=== PATIENT | male | born 1980 | race African-American/Black ===

== ENCOUNTER 2023-07-21 10:33 | Emergency (ER) | payer OTHER, SELFPAY ==
--- NOTE | 2023-07-21 10:46 | ED.BACK ---
HPI - Back Pain/Injury General Chief Complaint: Chest Pain Stated Complaint: Left Side Body/Chest/ Neck Pain Time Seen by Provider: 07/21/23 11:10 Source: patient Mode of arrival: ambulatory Limitations: no limitations History of Present Illness HPI Narrative: Pj is a 42-year-old male patient presenting to the clinic today with complaints of chest pain, back pain, neck pain, shortness of breath, weakness, and dizziness. He reports the symptoms have been going on for over 1 month but he got short of breath with exertion today. Blood pressure is 180/106 in the clinic today. Patient has prescription for antihypertensives but has not been taking them nor knows the name of them. Rates chest pain 5 or 6. Pain is worse with inspiration and sharp in nature. He is a current smoker. Related Data Home Medications Medication Instructions Recorded Confirmed amlodipine 5 mg tablet 5 mg PO DAILY 07/21/23 07/21/23 hydrochlorothiazide 20 mg PO DAILY 07/21/23 07/21/23 Allergies Allergy/AdvReac Type Severity Reaction Status Date / Time No Known Allergies Allergy Verified 07/21/23 11:31 Review of Systems Review of Systems: Pertinent positives per HPI. Patient denies any fever, chills, rash, headache, visual changes, cough, runny nose, sore throat, palpitations, nausea, vomiting, diarrhea, constipation, abdominal pain, or any urinary issues. PMFSH Past Medical History Medical History (Updated 07/21/23 @ 14:13 by Rossy Higgins MD) Hyperlipidemia Hypertension Social History Social History Social History: Engaged. Smoking packs per day: 1.5 Smoking cigarettes per day: 30.0 Smoking status: Current every day smoker Additional smoking assessment comments: Previously 1.5-2 PPD, currently 1-1.5 PPD. Alcohol intake: current Drinks per week: 14 Alcohol use details: 1-2 shots liquour daily Substance use: never Other substance usage details: denies Comments At the time of my signature, I reviewed and agree with the nursing past medical, surgical, social, and family history. There is no relevant family history pertinent to the patient complaint. Exam Narrative: General: Well-developed, well nourished, in no apparent distress Head: Normocephalic, atraumatic. Cardio: Regular rate and rhythm, s1 and s2 normal, no murmur appreciated. Resp: Clear to auscultation bilaterally, no rhonchi, rales, wheezing or rubs. Extremities: No deformity, no edema, no cyanosis, capillary refill less than 2 seconds, peripheral pulses palpable and strong. Integumentary: [place], warm, and dry, intact without lesion, no rashes. Course Course Emergency Course: Portions of this record may have been created with voice recognition software. Level of Care: Express Care Visit Vital Signs Vital signs: Vital Signs Temperature 36.8 C 07/21/23 11:10 Pulse Rate 88 07/21/23 11:10 Respiratory Rate 20 07/21/23 11:10 Blood Pressure 180/106 H 07/21/23 11:10 Pulse Oximetry 98 07/21/23 11:10 Oxygen Delivery Room Air 07/21/23 11:10 Temperature 36.8 C 07/21/23 11:10 Pulse Rate 88 07/21/23 11:10 Respiratory Rate 20 07/21/23 11:10 Blood Pressure 180/106 H 07/21/23 11:10 Pulse Oximetry 98 07/21/23 11:10 Oxygen Delivery Room Air 07/21/23 11:10 Vital signs reviewed MDM - Back Pain/Injury MDM Narrative Medical decision making narrative: At the time of visit patient is resting comfortably on the exam table. Patient appears to be nontoxic. Contacted collaborating physician- Dr. Abad and discussed patient's case with her and since there is no comparison EKG-she recommends transfer to ED. EKG: Sinus rhythm with ST T-wave abnormalities/changes. No comparison EKG. Medications: ASA-324mg po, INT Plan: Recommend transfer to the ER via EMS for further evaluation to rule out acute coronary syndrome. Patient agreeable to tra
[2023-07-21 11:10] VITALS: BP 180/106; PULSE 88; RESP 20; TEMP 36.8; O2SAT 98
--- NOTE | 2023-07-21 11:15 | ECG_ITS ---
Measurements Intervals [place] Rate: 82 P: 48 VA: 125 QRS: 17 QRSD: 102 T: 185 QT: 407 QTc: 478 Interpretive Statements SINUS RHYTHM LEFT VENTRICULAR HYPERTROPHY AND ST-T CHANGE ST-T WAVE ABNORMALITY IN ANT/INF LEADS- CONSIDER ISCHEMIA ABNORMAL ECG NO PREVIOUS ECG AVAILABLE FOR COMPARISON Electronically Signed On 07-21-2023 14:44:34 COLLISION REPAIRER by Willard Cheung D.O.
[2023-07-21] MEDS: ASPIRIN 81 MG CHEWABLE TABLET 324 MG PO (11:36)
== END 2023-07-21 11:40 | disposition short-term general hospital (02) ==
PROVIDERS: Emergency Provider Nurse Practitioner Family; PCP Emergency Medicine
DX: R06.02 Shortness of breath (principal); R94.31 Abnormal electrocardiogram [ECG] [EKG]; R07.1 Chest pain on breathing; I10 Essential (primary) hypertension; F17.210 Nicotine dependence, cigarettes, uncomplicated; E78.5 Hyperlipidemia, unspecified
CPT/HCPCS: 93005; 99215; A9270; G0463

== ENCOUNTER 2023-07-21 11:58 | Observation (INO) | payer OTHER, SELFPAY ==
[2023-07-21] VITALS (55 sets, daily range): BP systolic 174–214; BP diastolic 83–121; PULSE 70–89; RESP 11–22; TEMP 36.4–36.6; O2SAT 97–100; BMI 35.9
--- NOTE | 2023-07-21 | ECHO_ITS ---
Patient Info Name: Pj Duffy Age: 42 years : 1980 Gender: Male Ht: 67 in Wt: 242 lbs BSA: 2.33 m2 HR: 73 bpm BP: 203 / 121 mmHg Heart Rhythm: Sinus Rhythm Technical Quality: Good Exam Date: 07/21/2023 2:45 PM Exam Location: Echo Lab Patient Status: Emergency Admit Date: 07/21/2023 Staff Ordering Physician: Willard Cheung DO Pantomimist: Vaishali Solano RDCS Attending Provider: Rossy Higgins MD Referring Physician: Jonatan ARITA; Exam Type: CA echo doppler color flow Study Info Indications - nstemi Complete two-dimensional, color flow and Doppler transthoracic echocardiogram is performed. Summary 1. Complete two-dimensional, color flow and Doppler transthoracic echocardiogram is performed. 2. Left ventricular chamber dimension is normal. 3. There is moderate concentric increased left ventricular wall thickness. 4. Basal to apical lateral wall is mildly hypokinetic. 5. Left ventricular systolic function is normal, estimated at 65-70%. 6. The left ventricular diastolic function is grade III diastolic dysfunction. 7. E/e' 19 is elevated. 8. Left atrial chamber dimension is mildly enlarged. 9. There is mild mitral valve regurgitation. 10. No pulmonary hypertension, estimated pulmonary arterial systolic pressure is 22 mmHg. Left Ventricle E/e' 19 is elevated. Basal to apical lateral wall is mildly hypokinetic. Left ventricular chamber dimension is normal. Left ventricular systolic function is normal, estimated at 65-70%. There is moderate concentric increased left ventricular wall thickness. The left ventricular diastolic function is grade III diastolic dysfunction. Right Ventricle Right ventricular systolic function is normal and with normal TAPSE 2.3 cm. Right ventricular chamber dimension is normal. Left Atria Left atrial chamber dimension is mildly enlarged. Right Atria Right atrial chamber dimension is normal. Aortic Valve The aortic valve is trileaflet. There is no aortic valve stenosis. There is no aortic valve regurgitation. Pulmonic Valve There is no pulmonic regurgitation. Mitral Valve There is no mitral valve stenosis. There is mild mitral valve regurgitation. Tricuspid Valve There is no tricuspid valve regurgitation. No pulmonary hypertension, estimated pulmonary arterial systolic pressure is 22 mmHg. Pericardium/Pleural There is no pericardial effusion. Inferior Vena Cava Normal inferior vena cava with >50% collapse upon inspiration consistent with normal right atrial pressure, 5 mmHg. Aorta The aortic root size at the sinus of Valsalva is normal. Left Ventricular Outflow Tract Name Value Normal LVOT 2D LVOT Diameter 2.0 cm LVOT Doppler LVOT Peak Gradient 4 mmHg LVOT Mean Gradient 2 mmHg LVOT VTI 17 cm LVOT VTI/AV VTI Ratio 0.8 LVOT Stroke Volume 56 ml LVOT CO 4.1 l/min LVOT CI 1.8 l/min/m2 Pulmonic Valve Name Value
--- NOTE | ~2023-07-21 | XR_ITS ---
EXAMINATION: XR chest 1V portable 07/21/2023 12:23 INDICATION: Chest pain. Hypertension. PROCEDURE: AP portable chest COMPARISON: No prior studies for comparison. FINDINGS: The lungs are clear. The cardiomediastinal silhouette is within normal limits. There are no pleural effusions. There is no pneumothorax suspected. IMPRESSION: 1: NO ACUTE CARDIOPULMONARY DISEASE. Reviewed, dictated and finalized at location B. UMER INSIGHTS SPECIALIST
--- NOTE | ~2023-07-21 | CT_ITS ---
EXAMINATION: CTA chest abdomen pelvis DATE: 07/21/2023 12:55 AMBULANCE DISPATCHER INDICATION: Chest pain. Hypertension. TECHNIQUE: Computed tomographic angiography (CTA) of the chest, abdomen, and pelvis was performed wit hout and with 100 mL Omnipaque-350 intravenous contrast. The dose-length product was 1929.31 mGy-cm. Maximum intensity projection 3D-reconstructions of the aorta and other arteries were constructed by miguelangel lee technologist on a separate workstation. Automated exposure control and iterative reconstruction te duncan were employed. COMPARISON: None. FINDINGS: CHEST CTA: There are nonenlarged mediastinal lymph nodes, likely reactive. No significant pleural or pericardial effusion. No large central pulmonary embolism. No evidence for aortic aneurysm or dissection. No callum dence for significant lymphadenopathy. There is dependent atelectasis. There is a 6 mm right middle l obe nodule, image 86. No endobronchial lesions. No pneumothorax. Mild emphysema. Cardiomegaly. ABDOMEN AND PELVIS CTA: There were small low-density lesions in the left hepatic lobe, too small to characterize, likely amelia gn cysts. There are gallstones. The spleen, pancreas, adrenal glands and kidneys are unremarkable. No rmal appendix. No lymphadenopathy. No evidence for aortic aneurysm or dissection. No abnormal pelvic masses or fluid collections. Bladder is now well distended. Nonobstructive bowel pattern. The celiac axis, SMA, renal arteries and LIZ are widely patent. IMPRESSION: 1. No evidence for aortic aneurysm, significant stenosis or dissection. 2: Right middle lobe nodule measuring 6 mm. Recommend follow-up low dose CT chest in 6 months to ass ess stability. 3: Cholelithiasis. Reviewed, dictated and finalized at location B. BULANCE DISPATCHER IMPRESSION: 1. No evidence for aortic aneurysm, significant stenosis or dissection. 2: Right middle lobe nodule measuring 6 mm. Recommend follow-up low dose CT ch est in 6 months to assess stability. 3: Cholelithiasis.
--- NOTE | ~2023-07-21 | CT_ITS ---
EXAMINATION: CT BRAIN W/O DATE: 07/21/2023 12:47 INDICATION: Headache. Hypertension. TECHNIQUE: Computed tomography (CT) of the head was performed without intravenous contrast. The dose- length product was 605.33 mGy-cm. Automated exposure control and iterative reconstruction technique w ere employed. COMPARISON: No prior studies for comparison. FINDINGS: Normal brain parenchymal volume for age. Normal mederos-white differentiation. No acute intrac ranial hemorrhage, infarction, mass or mass effect. No ventriculomegaly or midline shift. Midline sagittal images demonstrate a normal corpus callosum, c raniovertebral junction and sella turcica. Basilar cisterns are patent. Paranasal sinuses and mastoids are pneumatized. No depressed skull fractures. IMPRESSION: 1. No acute intracranial abnormality. Reviewed, dictated and finalized at location B. HT ATTENDANT RAMP
--- NOTE | 2023-07-21 12:05 | ED.HA ---
HPI - Headache General Chief Complaint: Headache Stated Complaint: headache, htn Time Seen by Provider: 07/21/23 12:03 Source: patient and family (finicolas) Mode of arrival: ambulatory Limitations: no limitations History of Present Illness HPI Narrative: patient presents from urgent care. Patient notes that he has dealt with chest pain and shortness of breath with exertion for several months. he states he did have some chest pain with exertion while walking around earlier today and this prompted him to go to urgent care but this has since resolved and has not recurred. He also experiences a headache which he describes as a pressure throughout his head. He notes that this comes on when his blood pressure is elevated. he was previously on amlodipine, hydrochlorothiazide, and another antihypertensive that starts with a C. He was experiencing symptoms with this regimen and so two of these medications were discontinued and patient was to remain on amlodipine with the addition of 2 new antihypertensive agents. 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 he attributes the symptoms to being fat and out of shape. denies recreational drug use. Drinks 1 or 2 shots of alcohol daily. He notes that he has a chronic cough in the setting of his smoking but no changes recently. He was previously 1.5-2 pack per day smoker although lately has been 1-1 and half packs per day. He does endorse some nausea occasionally. No fevers. He notes that he becomes diaphoretic at night. Uses a CPAP machine. Has never established with Cardiology although has appointment to see someone on 07/28/2023. When he does experience chest pain is located in the middle of his chest and is worse with breathing. Father had myocardial infarction before age 65. He has been told his cholesterol is elevated but is not on medication for this. no prior stress test or cardiac catheterization. no history of TIA/ CVA, PAD. Related Data Home Medications Medication Instructions Recorded Confirmed amlodipine 5 mg tablet 5 mg PO DAILY 07/21/23 07/21/23 hydrochlorothiazide 20 mg PO DAILY 07/21/23 07/21/23 Allergies Allergy/AdvReac Type Severity Reaction Status Date / Time No Known Allergies Allergy Verified 07/21/23 11:31 [facility] Past Medical History Medical History (Updated 07/21/23 @ 14:13 by Rossy Higgins MD) Hyperlipidemia Hypertension Social History Social History Social History: Engaged. Smoking packs per day: 1.5 Smoking cigarettes per day: 30.0 Smoking status: Current every day smoker Additional smoking assessment comments: Previously 1.5-2 PPD, currently 1-1.5 PPD. Alcohol intake: current Drinks per week: 14 Alcohol use details: 1-2 shots liquour daily Substance use: never Other substance usage details: denies Exam Narrative: GENERAL: Well-appearing, well-nourished, and in no acute distress. HEAD: Normocephalic, atraumatic. EYES: Non injected, non icteric. Grossly normal/equal. ENT: Nares clear, no rhinorrhea or epistaxis. NECK: Supple. CHEST: Speaking in full sentences. No respiratory distress. HEART: Regular rate and rhythm. . ABDOMEN: Obese, Soft, nondistended. EXTREMITIES: Normal range of motion. No edema. SKIN: Warm, dry, no rash. NEURO: No focal deficits. Alert and oriented x3. PSYCH: Normal mood and affect. Course Vital Signs Vital signs: Vital Signs Temperature 97.6 F 07/21/23 11:55 Pulse Rate 82 07/21/23 11:55 Respiratory Rate 16 07/21/23 11:55 Pulse Oximetry 100 07/21/23 11:55 Temperature 97.6 F 07/21/23 11:55 Pulse Rate 78 07/21/23 12:25 Respiratory Rate 13 07/21/23 12:25 Blood Pressure 194/116 H 07/21/23 12:06 Pulse Oximetry 99 07/21/23 12:25 MDM - Headache MDM Narrative Medical decision making narrative: Patient presents wit
--- NOTE | 2023-07-21 12:06 | ECG_ITS ---
Measurements Intervals [place] Rate: 86 P: 50 CO: 124 QRS: 20 QRSD: 102 T: 190 QT: 390 QTc: 468 Interpretive Statements SINUS RHYTHM POSSIBLE LEFT ATRIAL ENLARGEMENT LEFT VENTRICULAR HYPERTROPHY AND ST-T CHANGE ST-T WAVE ABNORMALITY IN ANT/INF LEADS- CONSIDER ISCHEMIA ABNORMAL ECG NO PREVIOUS ECG AVAILABLE FOR COMPARISON Electronically Signed On 07-21-2023 14:44:16 VENDING MACHINE MECHANIC by Willard Cheung D.O.
[2023-07-21 12:15] LABS: Basophils Percent Auto 0.6 % (0.2-1.2); Eosinophils Absolute Auto 0.1 K/mm3 (0-0.3); Hematocrit 42.6 % (42.0-52.0); Hemoglobin 14.1 g/dL (14.0-18.0); Immature Granulocyte Absolute 0.01 K/mm3 (0.00-0.031); Immature Granulocyte Percent A 0.1 % (0-0.5); Lymphocytes Absolute Auto 2.75 K/mm3 (0.9-3.2); Lymphocytes Percent Auto 39.6 % (18.3-44.2); Mean Corpuscular HGB Conc 33.1 g/dl (32-36); Mean Corpuscular Hemoglobin 29.4 pg (26-34); Mean Corpuscular Volume 88.8 fl (80-100); Mean Platelet Volume 10.4 fl (7.4-10.4); Monocytes Absolute Auto 0.6 K/mm3 (0.1-0.6); Monocytes Percent Auto 7.9 % (2.6-8.5); Neutrophils Absolute Auto 3.5 K/mm3 (1.3-6.7); Neutrophils Percent Auto 50.8 % (45.5-73.1); Platelet Count Result 259 k/mm3 (150-375); Red Cell Distribution Width 13.6 % (11.5-14.5); White Blood Count 6.9 K/mm3 (4.5-10.0)
[2023-07-21 12:24] LABS: Alanine Aminotransferase 34 U/L (6-50); Albumin Level 4.3 g/dL (3.5-5.1); Alkaline Phosphatase 70 U/L (38-126); Anion Gap 7 mmol/L (8-16); Aspartate Amino Transferase 28 U/L (17-59); Bilirubin,Total 0.6 mg/dL (0.2-1.3); Blood Urea Nitrogen 14 mg/dL (9-20); Calcium 8.7 mg/dL (8.4-10.2); Carbon Dioxide 29 mmol/L (22-30); Chloride 104 mmol/L (98-107); Estimated CRCL calculation 111 ml/min; Estimated Glomerular Filt Rate > 60; Glucose 92 mg/dL (65-110); Lipase 43 U/L (23-300); Potassium 4.1 mmol/L (3.4-5.0); Sodium 140 mmol/L (137-145)
[2023-07-21 12:25] LABS: Prothrombin Time 13.5 Seconds (11.1-14.7)
[2023-07-21 12:27] LABS: Partial Thromboplastin Time 27.9 SECONDS (22.3-36.8)
[2023-07-21 12:38] LABS: Troponin I 0.066 ng/mL (0.000-0.034)
[2023-07-21 12:41] LABS: D Dimer 0.24 ug/mL (<0.48)
[2023-07-21 12:48] LABS: NT Pro B Type Natriuretic Pept 520 pg/mL (19.9-100)
[2023-07-21] MEDS: ACETAMINOPHEN 500 MG TABLET 1000 MG PO (13:03)
[2023-07-21] MEDS: ESMOLOL HCL 100 MG/10 ML VIAL 10 MG IV PUSH (13:37)
[2023-07-21] MEDS: HEPARIN SODIUM 5,000 UNITS/ML VIAL 4000 UNITS IV PUSH (13:49)
[2023-07-21] MEDS: HEPARIN SOD/D5W 100 UNITS/ML 25,000 UNITS/250 ML BAG 10 UNITS IV CONT (13:50)
--- NOTE | 2023-07-21 14:05 | PM.CNCAR ---
Assessment and Plan Assessment and plan (1) NSTEMI (non-ST elevated myocardial infarction): Code(s): I21.4 - Non-ST elevation (NSTEMI) myocardial infarction Status: Acute Assessment and Plan: Received aspirin 325 mg. Started on heparin drip in ER. Trend troponin to peak. Check Lipid panel. Start Metoprolol Tartate 25 mg BID and Atorvastatin 80 mg qhs. Obtain echo. Plan for [facility] tomorrow. (2) Hypertension: Qualifiers: Hypertension type: unspecified Qualified Code(s): I10 - Essential (primary) hypertension Code(s): I10 - Essential (primary) hypertension Status: Acute Assessment and Plan: High. Monitor. Start Losartan 50 mg BID. (3) Tobacco abuse: Code(s): Z72.0 - Tobacco use Status: Acute Assessment and Plan: Counseled regarding smoking cessation. History of Present Illness History of Present Illness Consult date/time: 07/21/23 14:05 Reason For Visit: headache, htn Narrative: 42 yr old man presents to ER with chest pain. He has a history of hypertension and smoking. Reports he has been having intermittent chest pain with exertion associated with sob for last several weeks. He had last episode yesterday and went to Urgent Care then sent to ER. Not having any chest pains now at rest. He smokes 2 ppd. Review of Systems Review of Systems: All systems reviewed & are unremarkable except as noted in HPI and below Constitutional: Constitutional: Reports as per HPI, Denies chills and Denies fever(s) Cardiovascular: Cardiovascular: Reports as per HPI, Reports chest pain and Reports dyspnea on exertion Respiratory: Respiratory: Reports as per HPI and Reports dyspnea Gastrointestinal: Gastrointestinal: Reports as per HPI and Denies abdominal pain Genitourinary: Genitourinary: Reports as per HPI and Denies dysuria Musculoskeletal: Musculoskeletal: Reports as per HPI Neurologic: Reports as per HPI, Denies dizziness and Denies syncope [facility] Past Medical History Medical History (Updated 07/21/23 @ 14:09 by Willard Cheung DO) Hyperlipidemia Hypertension Social History Social History Social History: Engaged. Smoking packs per day: 1.5 Smoking cigarettes per day: 30.0 Smoking status: Current every day smoker Additional smoking assessment comments: Previously 1.5-2 PPD, currently 1-1.5 PPD. Alcohol intake: current Drinks per week: 14 Alcohol use details: 1-2 shots liquour daily Substance use: never Other substance usage details: denies Meds Home Medications and Allergies Home Medications Medication Instructions Recorded Confirmed Type amlodipine 5 mg tablet 5 mg PO DAILY 07/21/23 07/21/23 History hydrochlorothiazide 20 mg PO DAILY 07/21/23 07/21/23 History Allergies Allergy/AdvReac Type Severity Reaction Status Date / Time No Known Allergies Allergy Verified 07/21/23 11:31 Vital Signs Vital Signs - 24 hr 07/21/23 11:55 07/21/23 12:06 07/21/23 12:07 Temperature 97.6 F Pulse Rate 82 86 83 Respiratory Rate 16 14 21 H Blood Pressure 194/116 H Pulse Oximetry 100 100 100 07/21/23 12:25 07/21/23 12:52 07/21/23 13:04 Temperature Pulse Rate 78 80 77 Respiratory Rate 13 15 16 Blood Pressure Pulse Oximetry 99 99 07/21/23 13:03 07/21/23 13:16 07/21/23 13:17 Temperature Pulse Rate 82 83 Respiratory Rate 14 14 Blood Pressure 174/113 H 192/95 H Pulse Oximetry 99 100 Exam Const: General: cooperative, healthy appearing and comfortable Resp: Auscultation: clear to auscultation bilaterally, no crackles, no rales, no rhonchi and no wheezes Cardio: Rate: regular rate Rhythm: regular rhythm Heart sounds: no murmurs Peripheral pulses: dorsalis pedis present GI: GI Palp: No abdominal tenderness and Yes Soft to palpation Extrem: Right lower extremity: no edema Left lower extremity: no edema Results Labs and Me
[2023-07-21 14:30] LABS: Cholesterol 235 mg/dL (0-200); HDL Direct 48 mg/dL; Triglycerides 94 mg/dL (<150)
[2023-07-21 14:42] LABS: LDL Cholesterol Direct 146 mg/dL
[2023-07-21 14:47] LABS: Amphetamine Screen Urine Negative (Negative); Barbiturate Screen Urine Negative (Negative); Benzodiazepines Screen Urine Negative (Negative); Cannabinoid Screen Urine Negative (Negative); Cocaine Screen Urine Negative (Negative); Methadone Screen Urine Negative (Negative); Opiate Screen Urine Negative (Negative); Phencyclidine Screen Urine Negative (Negative)
--- NOTE | 2023-07-21 14:57 | PC.NURSE ---
as of now pt states they would like to hold off on getting nicotine patch
--- NOTE | 2023-07-21 15:16 | ECG_ITS ---
Measurements Intervals [place] Rate: 81 P: 47 SD: 96 QRS: 29 QRSD: 102 T: 196 QT: 403 QTc: 468 Interpretive Statements SINUS RHYTHM WITH SHORT SD INTERVAL POSSIBLE LEFT ATRIAL ENLARGEMENT LEFT VENTRICULAR HYPERTROPHY AND ST-T CHANGE ST-T WAVE ABNORMALITY IN ANT/INF LEADS- CONSIDER ISCHEMIA BASELINE ARTIFACT- I, II, AVR ABNORMAL ECG COMPARED TO ECG 07/21/2023 12:01:19 NO SIGNIFICANT CHANGES Electronically Signed On 07-21-2023 15:38:18 WAN SUPPORT SPECIALIST by Willard Cheung D.O.
[2023-07-21 16:33] LABS: Troponin I 0.059 ng/mL (0.000-0.034)
[2023-07-21] MEDS: LOSARTAN POTASSIUM 50 MG TABLET PO (17:13)
[2023-07-21 18:55] LABS: Troponin I 0.059 ng/mL (0.000-0.034)
--- NOTE | 2023-07-21 19:48 | PM.IMHP ---
H&P: HPI History of Present Illness Date/Time: 07/21/23 15:00 Chief Complaint: Headache, chest pain, shortness of breath. Narrative: This is a pleasant 42-year-old male smoker with hypertension and obstructive sleep apnea on CPAP who presented to the emergency department via EMS from urgent care for evaluation of headache, chest pain, and shortness of breath. The patient provides the following history. He was on antihypertensives for years but took himself off of the medication after he lost nearly 100 lb. He admits that he did not check his blood pressures to see if they had improved. Eventually he started having symptoms of headaches and shortness of breath with exertion and he establish care with a primary care physician who started him back on antihypertensives. 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 Intermittently since that time he has shortness of breath with exertion and occasional chest pain. Today he was at work when he developed a headache in addition to a tightness in the mid chest associated with shortness of breath, nausea, and sweats. He denies syncope, near syncope, cold and flu symptoms, pleuritic pain, sensations of racing heart, vomiting, lower extremity edema, and calf pain. He went to urgent care and was referred to the ER. Blood pressures have been as high as 201/118. Initial troponin was mildly elevated at 0.066. EKG showed sinus rhythm with evidence of LVH and ST T-wave abnormalities in the anterior/inferior leads. Head CT and CT of the chest, abdomen, and pelvis were without acute findings. He is being admitted in this setting for further treatment and Cardiology consultation. Review of Systems Review of Systems: Twelve systems were reviewed and are negative except for as per HPI. [facility] Past Medical History Medical History (Updated 07/21/23 @ 19:56 by Amelia James PA-C) Hyperlipidemia Hypertension Obstructive sleep apnea on CPAP Tobacco abuse Family History Family History (Updated 07/21/23 @ 19:53 by Amelia James PA-C) Father , In early 40s Enlarged heart Heart disease Social History Social History (Updated 07/21/23 @ 19:54 by Amelia James PA-C) Social History: Surrogate medical decision maker: gogo Stanford. Code status: Full code. Smoking packs per day: 1.5 Smoking cigarettes per day: 30.0 Smoking status: Current every day smoker Additional smoking assessment comments: Previously 1.5-2 PPD, currently 1-1.5 PPD. Alcohol intake: current Drinks per week: 14 Alcohol use details: 1-2 shots liquour daily Substance use: never Other substance usage details: denies Additional living arrangements comments: Lives with finicolase and 3 children. 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 Meds Home Medications and Allergies Home Medications Medication Instructions Recorded Confirmed Type amlodipine 5 mg tablet 5 mg PO DAILY 07/21/23 07/21/23 History hydrochlorothiazide 20 mg PO DAILY 07/21/23 07/21/23 History Allergies Allergy/AdvReac Type Severity Reaction Status Date / Time No Known Allergies Allergy Verified 07/21/23 11:31 Vital Signs Vital Signs - 24 hr 07/21/23 11:55 07/21/23 12:06 07/21/23 12:07 Temperature 97.6 F Pulse Rate 82 86 83 Respiratory Rate 16 14 21 H Blood Pressure 194/116 H Pulse Oximetry 100 100 100 07/21/23 12:25 07/21/23 12:52 07/21/23 13:04 Temperature Pulse Rate 78 80 77 Respiratory Rate 13 15 16 Blood Pressure Pulse Oximetry 99 99 07/21/23 13:03 07/21/23 13:16 07/21/23 13:17 Temperature Pulse Rate 82 83 Respiratory Rate 14 14 Blood Pressure 174/113 H 192/95 H Pulse Oximetry 99 100 07/21/23 13:52 07/21/23 14:05 07/21/23 14:36 Temperature Pulse Rate 80 81 78 Respiratory Rate 16 18 14 Blood Pressure Pulse Oximetry 100 100 100 07/21/23 14:45 07/21/23 14:46
[2023-07-21 20:32] LABS: Partial Thromboplastin Time 96.5 SECONDS (22.3-36.8)
[2023-07-21] MEDS: amLODIPine BESYLATE 5 MG TABLET PO (20:39)
[2023-07-21] MEDS: METOPROLOL TARTRATE 25 MG TABLET PO (22:08)
[2023-07-21] MEDS: ATORVASTATIN 40 MG TABLET 80 MG PO (22:09)
[2023-07-22] VITALS (29 sets, daily range): BP systolic 153–198; BP diastolic 66–100; PULSE 8–87; RESP 10–22; TEMP 36.1–36.6; O2SAT 98–100
[2023-07-22 02:34] LABS: Basophils Percent Auto 0.4 % (0.2-1.2); Eosinophils Absolute Auto 0.1 K/mm3 (0-0.3); Eosinophils Percent Auto 1.8 % (0-4.4); Hematocrit 40.3 % (42.0-52.0); Hemoglobin 13.3 g/dL (14.0-18.0); Immature Granulocyte Absolute 0.01 K/mm3 (0.00-0.031); Immature Granulocyte Percent A 0.1 % (0-0.5); Lymphocytes Absolute Auto 3.12 K/mm3 (0.9-3.2); Lymphocytes Percent Auto 43.8 % (18.3-44.2); Mean Corpuscular Hemoglobin 29.6 pg (26-34); Mean Corpuscular Volume 89.8 fl (80-100); Mean Platelet Volume 10.9 fl (7.4-10.4); Monocytes Absolute Auto 0.5 K/mm3 (0.1-0.6); Monocytes Percent Auto 7.4 % (2.6-8.5); Neutrophils Absolute Auto 3.3 K/mm3 (1.3-6.7); Neutrophils Percent Auto 46.5 % (45.5-73.1); Platelet Count Result 242 k/mm3 (150-375); Red Blood Count 4.49 M/mm3 (4.6-6.20); Red Cell Distribution Width 13.7 % (11.5-14.5); White Blood Count 7.1 K/mm3 (4.5-10.0)
[2023-07-22 02:40] LABS: Anion Gap 6 mmol/L (8-16); Blood Urea Nitrogen 17 mg/dL (9-20); Carbon Dioxide 25 mmol/L (22-30); Chloride 105 mmol/L (98-107); Estimated CRCL calculation 120 ml/min; Estimated Glomerular Filt Rate > 60; Glucose 157 mg/dL (65-110); Magnesium 1.9 mg/dL (1.6-2.3); Potassium 4.1 mmol/L (3.4-5.0); Sodium 136 mmol/L (137-145)
--- NOTE | 2023-07-22 02:58 | ADMGEN ---
This patient, Pj Duffy, was admitted to IMU Room 212-01. Patient/family oriented to hospital policies and general routines including ID bracelet, bed and alarms, visiting hours, pain management, procedures, bathroom and other care routines, personal items, smoking policy, room service/diet, and visiting hours. Information on how to activate the Rapid Response Team has been discussed. Patient/Family are encouraged to report perceived risks to care and to ask questions if they do not understand what they are told or what they should do.
[2023-07-22 02:59] LABS: Partial Thromboplastin Time 53.5 SECONDS (22.3-36.8)
[2023-07-22] MEDS: hydrALAZINE HCL 20 MG/ML VIAL 10 MG IV PUSH (05:27)
[2023-07-22] MEDS: HEPARIN SODIUM 5,000 UNITS/ML VIAL 4000 UNITS IV PUSH (05:28)
--- NOTE | 2023-07-22 06:00 | ECG_ITS ---
Measurements Intervals [place] Rate: 78 P: 48 LA: 139 QRS: 21 QRSD: 98 T: 184 QT: 398 QTc: 455 Interpretive Statements SINUS RHYTHM LEFT VENTRICULAR HYPERTROPHY AND ST-T CHANGE ST-T WAVE ABNORMALITY IN ANT/INF LEADS- CONSIDER ISCHEMIA ABNORMAL ECG COMPARED TO ECG 07/21/2023 14:25:49 NO SIGNIFICANT CHANGES Electronically Signed On 07-22-2023 9:40:00 HOLLOW HANDLE KNIFE ASSEMBLER by Willard Cheung D.O.
--- NOTE | 2023-07-22 08:03 | PM.PNCARD ---
Progress Note: A&P Assessment and Plan (1) NSTEMI (non-ST elevated myocardial infarction): Code(s): I21.4 - Non-ST elevation (NSTEMI) myocardial infarction Status: Acute Assessment and Plan: Received aspirin 325 mg. Started on heparin drip in ER. Troponin peaked at .066. On Metoprolol Tartate 25 mg BID but change to Coreg 12.5 mg BID for better BP control, and Atorvastatin 80 mg qhs. 07/21/23 Echo: EF 65-70%, basal to apical lateral wall is mildly hypokinetic, mod LVH, grade III diastolic dysfunction (E/e' 19), mild LAE, mild MR. Discuss risks/benefits/alternative to LHC and he is agreeable. Consult [facility] for LHC. Keep NPO. (2) Hypertension: Qualifiers: Hypertension type: unspecified Qualified Code(s): I10 - Essential (primary) hypertension Code(s): I10 - Essential (primary) hypertension Status: Inactive Assessment and Plan: High. Monitor. Started Losartan 50 mg BID, change Metoprolol to Coreg 12.5 mg BID, on Amlodipine. (3) Tobacco abuse: Code(s): Z72.0 - Tobacco use Status: Acute Assessment and Plan: Counseled regarding smoking cessation. Subjective Date/time seen: 07/22/23 08:03 Interval history: He has intermittent chest pains since admission with associated sob. Exam Const: General: cooperative, healthy appearing and comfortable Resp: Auscultation: clear to auscultation bilaterally, no crackles, no rales, no rhonchi and no wheezes Cardio: Rate: regular rate Rhythm: regular rhythm Heart sounds: no murmurs Peripheral pulses: dorsalis pedis present Extrem: Right lower extremity: no edema Left lower extremity: no edema Objective Data Vital Signs Vital Signs: Vital Signs - 24 hr 07/21/23 11:55 07/21/23 12:06 07/21/23 12:07 Temperature 97.6 F Pulse Rate 82 86 83 Respiratory Rate 16 14 21 H Blood Pressure 194/116 H Pulse Oximetry 100 100 100 Oxygen Delivery 07/21/23 12:25 07/21/23 12:52 07/21/23 13:04 Temperature Pulse Rate 78 80 77 Respiratory Rate 13 15 16 Blood Pressure Pulse Oximetry 99 99 Oxygen Delivery 07/21/23 13:03 07/21/23 13:16 07/21/23 13:17 Temperature Pulse Rate 82 83 Respiratory Rate 14 14 Blood Pressure 174/113 H 192/95 H Pulse Oximetry 99 100 Oxygen Delivery 07/21/23 13:52 07/21/23 14:05 07/21/23 14:36 Temperature Pulse Rate 80 81 78 Respiratory Rate 16 18 14 Blood Pressure Pulse Oximetry 100 100 100 Oxygen Delivery 07/21/23 14:45 07/21/23 14:46 07/21/23 15:00 Temperature Pulse Rate 76 78 70 Respiratory Rate 15 18 20 Blood Pressure 190/115 H Pulse Oximetry 100 100 100 Oxygen Delivery 07/21/23 15:01 07/21/23 15:15 07/21/23 15:39 Temperature Pulse Rate 72 89 77 Respiratory Rate 14 22 H 17 Blood Pressure 203/121 H Pulse Oximetry 100 100 Oxygen Delivery 07/21/23 15:55 07/21/23 16:02 07/21/23 16:15 Temperature Pulse Rate 83 83 83 Respiratory Rate 16 15 16 Blood Pressure Pulse Oximetry 100 98 Oxygen Delivery 07/21/23 16:30 07/21/23 17:06 07/21/23 17:15 Temperature Pulse Rate 86 85 82 Respiratory Rate 17 18 Blood Pressure Pulse Oximetry 100 100 100 Oxygen Delivery 07/21/23 17:16 07/21/23 17:36 07/21/23 17:45 Temperature Pulse Rate 82 81 80 Respiratory Rate 16 15 15 Blood Pressure 199/105 H Pulse Oximetry 98 Oxygen Delivery 07/21/23 17:46 07/21/23 18:00 07/21/23 18:01 Temperature Pulse Rate 80 82 82 Respiratory Rate 15 16 16 Blood Pressure 183/101 H 187/109 H Pulse Oximetry 98 97 98 Oxygen Delivery 07/21/23 18:15 07/21/23 18:16 07/21/23 18:43 Temperature Pulse Rate 79 79 79 Respiratory Rate 16 14 18 Blood Pressure 201/118 H Pulse Oximetry 99 100 97 Oxygen Delivery 07/21/23 18:55 07/21/23 19:05 07/21/23 19:15 Temperature Pulse Rate 79 78 76 Respiratory Rate 17 16 13 Blood Pressure Pulse Oximetry 100 100 100 Oxygen Delivery
[2023-07-22] MEDS: LOSARTAN POTASSIUM 50 MG TABLET PO ×2 (08:48→18:19)
[2023-07-22] MEDS: carvediloL 12.5 MG TABLET PO (08:48)
[2023-07-22] MEDS: ASPIRIN 81 MG ENTERIC TABLET PO (08:48)
--- NOTE | 2023-07-22 09:38 | PM.IMPN ---
Progress Note: A&P Assessment and Plan (1) Non-ST elevation myocardial infarction (NSTEMI): Code(s): I21.4 - Non-ST elevation (NSTEMI) myocardial infarction Status: Acute Assessment and Plan: Continue heparin drip. Reported to go for heart catheterization at 1600 today. Currently asymptomatic. Troponin flat at 0.059. Continue Coreg, aspirin, Lipitor. Appreciate cardiology recommendations post catheterization. (2) Hypertensive urgency: Code(s): I16.0 - Hypertensive urgency Status: Acute Assessment and Plan: On 07/02 now resolved. Blood pressure 174/85, continue to monitor. (3) Tobacco abuse: Code(s): Z72.0 - Tobacco use Status: Acute Assessment and Plan: He has been counseled. (4) Obstructive sleep apnea on CPAP: Code(s): G47.33 - Obstructive sleep apnea (adult) (pediatric) Status: Acute Assessment and Plan: Continue CPAP at night (5) Hypertension: Qualifiers: Hypertension type: unspecified Qualified Code(s): I10 - Essential (primary) hypertension Code(s): I10 - Essential (primary) hypertension Status: Acute Assessment and Plan: Patient lost 100 lb at that time discontinued his medications. He has since gained that weight back. He has been started on losartan 50 mg p.o. b.i.d. amlodipine 5 mg q.h.s. Coreg 12.5 mg b.i.d.. Plan FEN: NPO for heart catheterization. Saline lock IV. GI prophylaxis: Not indicated DVT prophylaxis: On heparin drip Lines: Peripheral IV Code Status: Full code Dispo: Stable Subjective Date/time seen: 07/22/23 09:38 Interval history: 42-year-old male with history of hyperlipidemia hypertension JUAN on CPAP, tobacco abuse. No acute overnight events. Patient denies chest pain or shortness of breath. He thinks the medications have worked. The patient called in to his over the phone. Review of Systems Review of Systems: All systems reviewed & are unremarkable except as noted in HPI and below (Subjective) Exam Const: General: comfortable and no acute distress Other: A&O x3 Eyes: Pupils: Equal, round and reactive pupils present Neck: Neck: supple Resp: Effort & Inspection: normal respiratory effort Auscultation: clear to auscultation bilaterally Cardio: Rate: regular rate Rhythm: regular rhythm Heart sounds: no gallops, no murmurs and no rubs GI: GI Palp: Yes Soft to palpation and No Tenderness to palpation present (GI) Extrem: General: no edema Objective Data Vital Signs Vital Signs: Vital Signs - 24 hr 07/21/23 11:55 07/21/23 12:06 07/21/23 12:07 Temperature 97.6 F Pulse Rate 82 86 83 Respiratory Rate 16 14 21 H Blood Pressure 194/116 H Pulse Oximetry 100 100 100 Oxygen Delivery 07/21/23 12:25 07/21/23 12:52 07/21/23 13:04 Temperature Pulse Rate 78 80 77 Respiratory Rate 13 15 16 Blood Pressure Pulse Oximetry 99 99 Oxygen Delivery 07/21/23 13:03 07/21/23 13:16 07/21/23 13:17 Temperature Pulse Rate 82 83 Respiratory Rate 14 14 Blood Pressure 174/113 H 192/95 H Pulse Oximetry 99 100 Oxygen Delivery 07/21/23 13:52 07/21/23 14:05 07/21/23 14:36 Temperature Pulse Rate 80 81 78 Respiratory Rate 16 18 14 Blood Pressure Pulse Oximetry 100 100 100 Oxygen Delivery 07/21/23 14:45 07/21/23 14:46 07/21/23 15:00 Temperature Pulse Rate 76 78 70 Respiratory Rate 15 18 20 Blood Pressure 190/115 H Pulse Oximetry 100 100 100 Oxygen Delivery 07/21/23 15:01 07/21/23 15:15 07/21/23 15:39 Temperature Pulse Rate 72 89 77 Respiratory Rate 14 22 H 17 Blood Pressure 203/121 H Pulse Oximetry 100 100 Oxygen Delivery 07/21/23 15:55 07/21/23 16:02 07/21/23 16:15 Temperature Pulse Rate 83 83 83 Respiratory Rate 16 15 16 Blood Pressure Pulse Oximetry 100 98 Oxygen Delivery 07/21/23 16:30 07/21/23 17:06 07/21/23 17:15 Temperature Pulse R
[2023-07-22 11:46] LABS: Partial Thromboplastin Time 82.3 SECONDS (22.3-36.8)
[2023-07-22] MEDS: HEPARIN SOD/D5W 100 UNITS/ML 25,000 UNITS/250 ML BAG 13 UNITS IV CONT (12:55)
--- NOTE | 2023-07-22 15:48 | PC.NURSE ---
Pt transferred to label printing machinist via bed accompanied by 2 RNs.
--- NOTE | 2023-07-22 16:37 | WPDMODSED ---
Moderate Sedation Note-Pt Data Patient Data Diagnosis: Chest pain, elevated troponin abnormal ECG Present Complaint: this is a 42-year-old man without previous history of coronary artery disease who entered the hospital with chest pain. His troponins were found to be modestly elevated but flat. His electrocardiogram is markedly abnormal with LVH and marked ST and T abnormalities. In this setting left heart catheterization has been recommended. Procedure to be performed/Plan: Left ventriculogram coronary angiogram femoral artery angiogram Angio-Seal to right femoral artery Allergies Allergy/AdvReac Type Severity Reaction Status Date / Time No Known Allergies Allergy Verified 07/21/23 11:31 Home Medications Medication Instructions Recorded Confirmed Type amlodipine 10 mg tablet 10 mg PO DAILY 07/22/23 07/22/23 History clonidine HCl 0.2 mg tablet 0.2 mg PO PRN 07/22/23 07/22/23 History hydrochlorothiazide 25 mg tablet 25 mg PO DAILY 07/22/23 07/22/23 History Current Medications: Active Medications Acetaminophen (Acetaminophen 325 Mg Tablet) 650 mg PO Q6H PRN PRN Reason: Mild Pain (1-3) or Fever Amlodipine Besylate (Amlodipine Besylate 5 Mg Tablet) 10 mg PO QHS [facility] Aspirin (Aspirin 81 Mg Enteric Tablet) 81 mg PO QAM [facility] Last Admin: 07/22/23 08:48 Dose: 81 mg Atorvastatin Calcium (Atorvastatin 40 Mg Tablet) 80 mg PO QHS [facility] Last Admin: 07/21/23 22:09 Dose: 80 mg Carvedilol (Carvedilol 25 Mg Tablet) 25 mg PO Q12HR [facility] Heparin Sodium (Porcine) (Heparin Sodium 5,000 Units/Ml Vial) 4,000 units IV PUSH PRN PRN PRN Reason: aPTT less than 55 seconds Last Admin: 07/22/23 05:28 Dose: 4,000 units Heparin Sodium (Porcine) (Heparin Sodium 5,000 Units/Ml Vial) 3,500 units IV PUSH PRN PRN PRN Reason: aPTT 55 - 70 seconds Hydralazine HCl (Hydralazine Hcl 20 Mg/Ml Vial) 10 mg IV PUSH Q8H PRN PRN Reason: Blood Pressure - High Last Admin: 07/22/23 05:27 Dose: 10 mg Heparin Sodium/Dextrose (Heparin Sodium/D5w 100 Units/Ml) 25,000 units in 250 mls @ 13 mls/hr IV CONT .[id number] [facility]; Protocol Last Titration: 07/22/23 15:46 Dose: 0 units/hr, 0 mls/hr Losartan Potassium (Losartan Potassium 50 Mg Tablet) 50 mg PO BID [facility] Last Admin: 07/22/23 08:48 Dose: 50 mg Nicotine (Nicotine (*Pbkc) 14 Mg Patch) 1 patch TRANSDERM DAILY [facility] Last Admin: 07/22/23 08:52 Dose: Not Given Ondansetron HCl (Ondansetron Inj 4 Mg/2 Ml Vial) 4 mg IV PUSH Q4H PRN PRN Reason: Nausea Perflutren Lipid Microsphere (Perflutren Lipid Microspheres 1.5 Ml Vial Diluted To 10 Ml Total Volume) 0 ml IV PUSH ONCE PRN; Protocol PRN Reason: adequate visualization Stop: 07/24/23 14:03 Sedation/Anesthesia: No previous sedation/anesthesia problems (including family history). [facility] Past Medical History Medical History (Updated 07/22/23 @ 00:01 by Elijah Mckeon) Hyperlipidemia Hypertension Obstructive sleep apnea on CPAP Tobacco abuse Family History Family History (Updated 07/21/23 @ 19:53 by Amelia James PA-C) Father , In early 40s Enlarged heart Heart disease Social History Social History (Updated 07/21/23 @ 19:54 by Amelia James PA-C) Social History: Surrogate medical decision maker: gogo Stanford. Code status: Full code. Smoking packs per day: 1 Smoking cigarettes per day: 20.0 Years smoked: 21 Smoking pack-years: 21.00 Smoking status: Current every day smoker Tobacco type: cigarettes Additional smoking assessment comments: Previously 1.5-2 PPD, currently 1-1.5 PPD. Alcohol intake: current Drinks per week: 7 Alcohol use details: 1-2 shots liquour daily Substance use: never Other substance usage details: denies Do You Feel Safe in your Home?: Yes Lack of Transportation: No Lack of Food: Never True Current Housing: I Have Housing Concerned About Future Housing: No Difficulty Paying Gas/Electric Bills: No Difficulty Paying for
--- NOTE | 2023-07-22 16:39 | P.PCNCC_ITS ---
Cardiac Cath Procedure Note Date of procedure:: 07/22/23 Performing physician:: Romario Dennis MD Indication:: chest pain troponin elevation abnormal ECG Brief clinical history:: this is a 42-year-old man with history of hypertension who enters the hospital with chest pain his troponin levels are mildly elevated and are flat without a pattern of typical acute coronary injury. He has been referred for catheterization because of these findings and impressive ST and T abnormalities on ECG. Procedure Procedure performed:: Left ventriculogram coronary angiogram Angio-Seal to right femoral artery Sedation/Medication given:: fentanyl 50 mg Versed 2 mg case start time 4:15 p.m. case end time 4:35 p.m. sedation provided by Essie Melton RN, trained observer Access site:: right femoral artery Estimated blood loss:: 20 cc Procedure note:: patient was brought to the cardiac catheterization lab where the right femoral triangle was prepped and draped in usual fashion. Anesthesia was given with 1% lidocaine infiltrated locally. Using the modified Seldinger technique the femoral artery was punctured and a 5 Cameroonian vascular sheath was placed. After this I used a 5 Cameroonian angled pigtail catheter to measure left-sided hemodynamics and to inject the left ventriculogram in the are AO projection. After this I used 5 Cam[place]onian JR4 catheter to engage and inject the right coronary artery in the 5 Cam[place]onian FL4 catheter to inject the left coronary artery. Cineangiograms were then reviewed in detail and the case was terminated. An angiogram was done the femoral artery through the sheath after which an Angio- Seal device was deployed with a good hemostatic result. There were no procedural complications in the was no evidence of groin hematoma upon his departure From the cardiac catheterization lab. Findings:: hemodynamics: Central aortic pressure is 158 over 92 left ventricle 160/5 end-diastolic pressure 20 there is no gradient on pullback across the aortic valve. Left ventricle: The left ventricle is normal in size and exhibits severe concentric hypertrophy. Left ventricular contractility is hyperdynamic with very small and systolic volume estimated ejection fraction of 80%. The apical segment of the left ventricle is nearly obliterated in end systole. The left main coronary artery is nicely patent the left anterior descending is a medium caliber artery extending down to and around the apex providing significant flow to the inferior wall as well. The LAD has mild atherosclerotic plaquing in the midportion there is about 20-30% stenosis after the major diagonal branch takes origin. There are no flow- limiting lesions identified the circumflex is a medium caliber artery giving rise to the marginal branch circumflex system has mild luminal irregularities in its distal 3rd there is approximately 30% stenosis in the trunk of the circ the right coronary artery is medium caliber and dominant to the posterior circulation the RPDA and RPL branches are angiographically rather small. There are mild diffuse luminal irregularities in the proximal mid RCA but no flow- limiting disease is identified. Conclusion:: 1. Right coronary dominant circulation with no angiographically significant lesions are seen. Modest plaquing in the mid LAD and proximal RCA are identified as well as in the mid circumflex trunk 2. severe left ventricular hypertrophy with hyperdynamic systolic function and near obliteration of the LV cavity in end systole Romario Dennis MD FACC
--- NOTE | 2023-07-22 18:00 | PC.NURSE ---
Pt back from label pinker. Bedside report given. Groin site inspected. No swelling, bruising or hematoma noted. +3 pedal pulses, no numbness or tingling in right leg
[2023-07-22] MEDS: SODIUM CHLORIDE 0.9% IV 1,000 ML 125 ML (18:19)
[2023-07-22] MEDS: carvediloL 25 MG TABLET PO (20:04)
[2023-07-22] MEDS: ATORVASTATIN 40 MG TABLET 80 MG PO (20:04)
[2023-07-22] MEDS: amLODIPine BESYLATE 5 MG TABLET 10 MG PO (20:04)
[2023-07-22] MEDS: cloNIDine HCL 0.1 MG TABLET PO (20:05)
[2023-07-23] VITALS (9 sets, daily range): BP systolic 140–158; BP diastolic 75–84; PULSE 61–73; RESP 20–22; TEMP 35.6–36.3; O2SAT 100
[2023-07-23 04:58] LABS: Hematocrit 38.4 % (42.0-52.0); Hemoglobin 12.8 g/dL (14.0-18.0); Mean Corpuscular HGB Conc 33.3 g/dl (32-36); Mean Corpuscular Hemoglobin 29.7 pg (26-34); Mean Corpuscular Volume 89.1 fl (80-100); Mean Platelet Volume 10.3 fl (7.4-10.4); Platelet Count Result 217 k/mm3 (150-375); Red Blood Count 4.31 M/mm3 (4.6-6.20); Red Cell Distribution Width 13.6 % (11.5-14.5); White Blood Count 6.1 K/mm3 (4.5-10.0)
[2023-07-23 05:18] LABS: Anion Gap 6 mmol/L (8-16); Blood Urea Nitrogen 15 mg/dL (9-20); Calcium 8.9 mg/dL (8.4-10.2); Carbon Dioxide 25 mmol/L (22-30); Chloride 106 mmol/L (98-107); Estimated CRCL calculation 108 ml/min; Estimated Glomerular Filt Rate > 60; Glucose 116 mg/dL (65-110); Magnesium 1.9 mg/dL (1.6-2.3); Potassium 4.1 mmol/L (3.4-5.0); Sodium 137 mmol/L (137-145)
[2023-07-23] MEDS: ACETAMINOPHEN 325 MG TABLET 650 MG PO (06:37)
--- NOTE | 2023-07-23 07:32 | PM.PNCARD ---
Progress Note: A&P Assessment and Plan (1) Hypertension: Qualifiers: Hypertension type: unspecified Qualified Code(s): I10 - Essential (primary) hypertension Code(s): I10 - Essential (primary) hypertension Status: Inactive Assessment and Plan: High. Monitor. On Clonidine 0.1 mg BID, Losartan 50 mg BID, Coreg 25 mg BID, on Amlodipine 10 mg daily. If SBP <160 mmHg later this morning, may d/c home from cardiology standpoint. F/U with me in 1 week. (2) Tobacco abuse: Code(s): Z72.0 - Tobacco use Status: Acute Assessment and Plan: Counseled regarding smoking cessation. (3) Chest pain: Qualifiers: Chest pain type: chest pain on breathing Qualified Code(s): R07.1 - Chest pain on breathing Code(s): R07.9 - Chest pain, unspecified Status: Inactive Assessment and Plan: Due to hypertensive urgency. Troponin peaked at .066. 07/21/23 Echo: EF 65-70%, basal to apical lateral wall is mildly hypokinetic, mod LVH, grade III diastolic dysfunction (E/e' 19), mild LAE, mild MR. 07/22/23 [facility] with Dr. Dennis: Mild plaque with up to 30% stenosis in LAD, LCx and RCA. (4) Hyperlipidemia: Code(s): E78.5 - Hyperlipidemia, unspecified Status: Acute Assessment and Plan: On Atorvastatin. (5) NSVT (nonsustained ventricular tachycardia): Code(s): I47.29 - Other ventricular tachycardia Status: Acute Assessment and Plan: 8 beat run NSVT. On Coreg. (6) Obstructive sleep apnea on CPAP: Code(s): G47.33 - Obstructive sleep apnea (adult) (pediatric) Status: Acute Assessment and Plan: Continue with regular CPAP use for sleep. Subjective Date/time seen: 07/23/23 07:32 Interval history: No longer having chest pain or sob. Right groin is sore from cath access. Exam Const: General: cooperative, healthy appearing and comfortable Resp: Auscultation: clear to auscultation bilaterally, no crackles, no rales, no rhonchi and no wheezes Cardio: Rate: regular rate Rhythm: regular rhythm Heart sounds: no murmurs Peripheral pulses: dorsalis pedis present Extrem: Right lower extremity: no edema Left lower extremity: no edema Objective Data Vital Signs Vital Signs: Vital Signs - 24 hr 07/22/23 07:40 07/22/23 08:48 07/22/23 09:26 Temperature 97.2 F L Pulse Rate 82 85 78 Respiratory Rate 22 H Blood Pressure 194/86 H 174/85 H Pulse Oximetry 100 Oxygen Delivery 07/22/23 08:00 07/22/23 08:00 07/22/23 11:10 Temperature 97.1 F L Pulse Rate 78 86 Respiratory Rate 22 H Blood Pressure 165/89 H Pulse Oximetry 99 Oxygen Delivery Room Air 07/22/23 10:00 07/22/23 12:00 07/22/23 12:00 Temperature Pulse Rate 85 8 L Respiratory Rate Blood Pressure Pulse Oximetry Oxygen Delivery Room Air 07/22/23 14:00 07/22/23 16:52 07/22/23 17:00 Temperature Pulse Rate 75 75 71 Respiratory Rate 17 16 Blood Pressure 153/92 H 160/97 H Pulse Oximetry 100 99 Oxygen Delivery Room Air Room Air 07/22/23 17:15 07/22/23 17:30 07/22/23 17:45 Temperature Pulse Rate 77 71 78 Respiratory Rate 15 12 17 Blood Pressure 162/89 H 160/94 H 160/100 H Pulse Oximetry 100 98 100 Oxygen Delivery Room Air Room Air Room Air 07/22/23 18:00 07/22/23 18:15 07/22/23 18:00 Temperature 97.0 F L Pulse Rate 79 74 Respiratory Rate Blood Pressure 182/87 H Pulse Oximetry 99 Oxygen Delivery Room Air 07/22/23 18:45 07/22/23 19:45 07/22/23 20:04 Temperature 97.4 F L 97.2 F L Pulse Rate 76 78 81 Respiratory Rate 18 18 Blood Pressure 198/96 H 169/78 H Pulse Oximetry 100 98 Oxygen Delivery 07/22/23 20:45 07/22/23 21:45 07/22/23 22:45 Temperature 97.6 F 97.4 F L 97.4 F L Pulse Rate 79 78 79 Respiratory Rate 18 18 16 Blood Pressure 175/87 H 169/79 H 168/66 H Pulse Oximetry 100 100 98 Oxygen Delivery 07/22/23 23:48 07/23/23 04:00 07/22/23 20:00 T
[2023-07-23] MEDS: cloNIDine HCL 0.1 MG TABLET PO (08:24)
[2023-07-23] MEDS: LOSARTAN POTASSIUM 50 MG TABLET PO (08:24)
[2023-07-23] MEDS: NICOTINE (*PBKC) 14 MG PATCH 1 PATCH TRANSDERM (08:24)
[2023-07-23] MEDS: carvediloL 25 MG TABLET PO (08:24)
[2023-07-23] MEDS: ASPIRIN 81 MG ENTERIC TABLET PO (08:24)
--- NOTE | 2023-07-23 09:38 | PM.DS ---
DS: Admitting Diagnosis Discharge Date 07/23/23 Admitting Diagnosis chest pain DS: Discharge Diagnosis Discharge Diagnosis (1) NSVT (nonsustained ventricular tachycardia): Code(s): I47.29 - Other ventricular tachycardia Status: Acute (2) Hyperlipidemia: Code(s): E78.5 - Hyperlipidemia, unspecified Status: Acute (3) Hypertensive urgency: Code(s): I16.0 - Hypertensive urgency Status: Acute (4) Tobacco abuse: Code(s): Z72.0 - Tobacco use Status: Acute (5) Obstructive sleep apnea on CPAP: Code(s): G47.33 - Obstructive sleep apnea (adult) (pediatric) Status: Acute (6) Non-ST elevation myocardial infarction (NSTEMI): Code(s): I21.4 - Non-ST elevation (NSTEMI) myocardial infarction Status: Acute DS: Summary Hospital Course Hospital Course: 42-year-old male with history of hyperlipidemia hypertension obesity JUAN on CPAP and tobacco abuse. He had been noncompliant with his antihypertensives. He began having symptoms of headaches and shortness of breath and chest pain. Presented with a blood pressure as high as 201/118. His troponin peaked at . 0.066. On 07/22 he underwent cardiac catheterization with summary as follows: Conclusion:: 1.? ? Right coronary dominant circulation with no angiographically significant lesions are seen.? Modest plaquing in the mid LAD and proximal RCA are identified as well as in the mid circumflex trunk 2. ? severe left ventricular hypertrophy with hyperdynamic systolic function and near obliteration of the LV cavity in end systole On day of discharge 07/23 he is stable for discharge home with no post catheterization complications. He has been educated on compliance and the patient agrees. Cardiac rehab has been ordered and he has been advised not to participate in strenuous activity further guidance provided at follow-up with Dr. Cheung in 1 week. His blood pressure has been improved and stabilized and discharge medications include aspirin 81 mg daily, amlodipine 10 mg daily, Coreg 25 mg b.i.d., clonidine 0.1 mg b.i.d., losartan 50 mg p.o. b.i.d. as advised by Cardiology. He will also take atorvastatin and nicotine patch. He has been counseled on smoking cessation. Patient was full code during his admission. Time Spent with Patient Time attestation: Total time spent providing and/or coordinating discharge services: Exam Const: General: cooperative and no acute distress Resp: Effort & Inspection: normal respiratory effort Auscultation: clear to auscultation bilaterally Cardio: Rate: regular rate Rhythm: regular rhythm Heart sounds: S1 normal heart sound present and S2 normal heart sound present GI: GI Palp: No abdominal tenderness Auscultation: normal bowel sounds DS: Data Data Completed and Pending Labs on day of discharge: Labs from last 24 hours 07/23/23 07/22/23 04:41 11:17 WBC 6.1 RBC 4.31 L Hgb 12.8 L Hct 38.4 L MCV 89.1 MCH 29.7 MCHC 33.3 RDW 13.6 Plt Count 217 MPV 10.3 APTT 82.3 H Sodium 137 Potassium 4.1 Chloride 106 Carbon Dioxide 25 Anion Gap 6 L BUN 15 Creatinine 0.90 Estim Creat Clear Calc 108 Estimated GFR > 60 Glucose 116 H Calcium 8.9 Magnesium 1.9 Discharge Plan Discharge Attending physician on discharge: Martha Deshpande Consulting providers: Willard Cheung; Howie Phelps; Jose Manning Discharging Clinician: Martha Deshpande Patient Disposition: Home, Self-Care Activity: may shower and no straining Diet: heart healthy Discharge Instructions: Patient Instructions: Heart Attack (GEN), How to Stop Smoking (DC), Heart Healthy Diet (GEN), Heart Catheterization (DC) Stand Alone Forms: General Discharge Information Follow-up/Referrals: Willard Cheung DO [Physician] - 1 Week Discharge Medications: New losartan [Cozaar] 50 mg Tablet 50 mg PO BID Qty: 90 1RF atorvastatin 40 mg Tablet 8
== END 2023-07-23 10:39 | disposition home or self-care (01) ==
LOC: ANHED 14:13 → ANHIMU 19:46
PROVIDERS: General Practice; Internal Medicine Cardiovascular Disease; Physician Assistant; Specialist; Admitting Provider Internal Medicine; Emergency Provider Student in an Organized Health Care Education/Training Program; PCP Emergency Medicine; Visit Provider Internal Medicine
PROC: 4A023N7 Measurement of Cardiac Sampling and Pressure, Left Heart, Percutaneous Approach (ICD-10-PCS; CPT 93452; principal; 2023-07-22 16:00)
DX: I21.4 Non-ST elevation (NSTEMI) myocardial infarction (principal); I16.0 Hypertensive urgency; I47.29 Other ventricular tachycardia; I25.10 Atherosclerotic heart disease of native coronary artery without angina pectoris; I11.9 Hypertensive heart disease without heart failure; E78.5 Hyperlipidemia, unspecified; R91.1 Solitary pulmonary nodule; K80.20 Calculus of gallbladder without cholecystitis without obstruction; G47.33 Obstructive sleep apnea (adult) (pediatric); F17.210 Nicotine dependence, cigarettes, uncomplicated
CPT/HCPCS: 36415; 70450; 71045; 71275; 74174; 80048; 80053; 80061; 80307; 83690; 83735; 83880; 84484; 85025; 85027; 85380; 85610; 85730; 93005; 93306; 93458; 96365; 96366; 96375; 99285; A9270; C1760; C1887; C1894; G0269; G0378; J0360; J1644; J2250; J3010; J7030; J7040; Q9967

== ENCOUNTER 2023-09-04 14:42 | Emergency (ER) | payer OTHER, SELFPAY ==
[2023-09-04] VITALS (7 sets, daily range): BP systolic 147–172; BP diastolic 77–98; PULSE 63–78; RESP 13–19; TEMP 36.4–36.6; O2SAT 98–100
--- NOTE | ~2023-09-04 | XR_ITS ---
EXAMINATION: XR chest 2V DATE: 09/04/2023 15:33 INDICATION: Chest pain. TECHNIQUE: Frontal and lateral views of the chest were obtained. COMPARISON: Chest single view 07/21/2023, chest CT 07/21/2023 FINDINGS: There is no pneumonia, pleural effusion, or pneumothorax. The heart size is normal. IMPRESSION: 1. No acute cardiopulmonary disease. Reviewed, dictated and finalized at location [facility] [employer]
--- NOTE | 2023-09-04 14:43 | ECG_ITS ---
Measurements Intervals [place] Rate: 67 P: 143 CO: 124 QRS: 41 QRSD: 97 T: 203 QT: 417 QTc: 443 Interpretive Statements SINUS OR ECTOPIC ATRIAL RHYTHM POSSIBLE LEFT ATRIAL ENLARGEMENT LEFT VENTRICULAR HYPERTROPHY AND ST-T CHANGE CANNOT RULE OUT SEPTAL INFARCT, AGE INDETERMINATE ST-T WAVE ABNORMALITY IN DIFFUSE LEADS- CONSIDER ISCHEMIA ABNORMAL ECG COMPARED TO ECG 07/22/2023 09:12:13 NO SIGNIFICANT CHANGES Electronically Signed On 09-04-2023 15:23:18 [employer] by Willard Cheung D.O.
--- NOTE | 2023-09-04 14:46 | ED.CHESTPAIN ---
HPI - Chest Pain General Chief Complaint: Chest Pain Stated Complaint: chest pain Time Seen by Provider: 09/04/23 14:46 Source: patient Mode of arrival: ambulatory Limitations: no limitations History of Present Illness HPI narrative: 43 years old male came to the emergency room by a private car with his girlfriend complaining of sudden onset of left chest pain while turning a wrench at work lasted for 1-2 minutes, then resolved, then came back again during walking around and was worse than the 1st 1 lasted for few minutes resolve at rest. Patient was in our hospital recently for similar symptoms with negative cardiac catheterization History of hypertension, tobacco use, chest pain, unspecified, hyperlipidemia, obstructive sleep apnea, alcohol abuse. Related Data Allergies Allergy/AdvReac Type Severity Reaction Status Date / Time No Known Allergies Allergy Verified 08/03/23 14:44 Review of Systems Review of Systems: All systems reviewed & are unremarkable except as noted in HPI and below PMFSH Past Medical History Medical History Hyperlipidemia Hypertension Obstructive sleep apnea on CPAP Tobacco abuse Family History Family History Father , In early 40s Enlarged heart Heart disease Social History Social History Social History: Surrogate medical decision maker: gogo Stanford. Code status: Full code. Smoking packs per day: 1 Smoking cigarettes per day: 20.0 Years smoked: 21 Smoking pack-years: 21.00 Smoking status: Current every day smoker Tobacco type: cigarettes Additional smoking assessment comments: Previously 1.5-2 PPD, currently 1-1.5 PPD. Alcohol intake: current Drinks per week: 7 Alcohol use details: 1-2 shots liquour daily Substance use: never Other substance usage details: denies Do You Feel Safe in your Home?: Yes Lack of Transportation: No Lack of Food: Never True Current Housing: I Have Housing Concerned About Future Housing: No Difficulty Paying Gas/Electric Bills: No Difficulty Paying for Meds: No Currently Unemployed: No Education: High School Diploma/GED Difficulty w/ Childcare or Family Care: No Additional living arrangements comments: Lives with fiancee and 3 children. 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 Spiritual care concerns: No Exam Narrative: General appearance: Well-developed, well-nourished Skin: Normal color Head: Normocephalic, nontraumatic Eyes: Clear conjunctiva ENT: Oropharynx normal, ears normal, nose normal Neck: Supple, nontender Chest and respiratory: Airway patent, no respiratory distress, no accessory muscle use Heart: Regular rate/rhythm Abdomen: Soft, nontender, no organomegaly, quiet bowel sounds Vascular: Normal peripheral pulses, normal capillary refill. Musculoskeletal: Normal range of motion, nontender back Neurologic: Alert and oriented ?3, ACTIVITIES VOLUNTEER is normal as tested, no gross motor deficit Course Vital Signs Vital signs: Vital Signs Temperature 36.4 C 09/04/23 14:50 Pulse Rate 78 09/04/23 14:50 Respiratory Rate 16 09/04/23 14:50 Blood Pressure 172/86 H 09/04/23 14:50 Pulse Oximetry 98 09/04/23 14:50 Temperature 36.4 C 09/04/23 14:50 Pulse Rate 64 09/04/23 17:47 Respiratory Rate 19 09/04/23 17:47 Blood Pressure 165/93 H 09/04/23 17:47 Pulse Oximetry 99 09/04/23 17:47 Oxygen Delivery Room Air 09/04/23 15:01 MDM - Chest Pain MDM Narrative Medical decision making narrativ
[2023-09-04 15:05] LABS: Basophils Percent Auto 0.4 % (0.2-1.2); Eosinophils Absolute Auto 0.2 K/mm3 (0-0.3); Eosinophils Percent Auto 2.9 % (0-4.4); Hematocrit 39.5 % (42.0-52.0); Hemoglobin 13.2 g/dL (14.0-18.0); Immature Granulocyte Absolute 0.01 K/mm3 (0.00-0.031); Immature Granulocyte Percent A 0.2 % (0-0.5); Lymphocytes Absolute Auto 2.15 K/mm3 (0.9-3.2); Lymphocytes Percent Auto 38.3 % (18.3-44.2); Mean Corpuscular HGB Conc 33.4 g/dl (32-36); Mean Corpuscular Hemoglobin 29.5 pg (26-34); Mean Corpuscular Volume 88.4 fl (80-100); Mean Platelet Volume 10.1 fl (7.4-10.4); Monocytes Absolute Auto 0.5 K/mm3 (0.1-0.6); Neutrophils Absolute Auto 2.8 K/mm3 (1.3-6.7); Neutrophils Percent Auto 50.2 % (45.5-73.1); Platelet Count Result 241 k/mm3 (150-375); Red Blood Count 4.47 M/mm3 (4.6-6.20); Red Cell Distribution Width 13.8 % (11.5-14.5); White Blood Count 5.6 K/mm3 (4.5-10.0)
[2023-09-04 15:15] LABS: Alanine Aminotransferase 24 U/L (6-50); Albumin Level 4.2 g/dL (3.5-5.1); Alkaline Phosphatase 66 U/L (38-126); Anion Gap 6 mmol/L (8-16); Aspartate Amino Transferase 24 U/L (17-59); Bilirubin,Total 0.4 mg/dL (0.2-1.3); Blood Urea Nitrogen 17 mg/dL (9-20); Calcium 9.3 mg/dL (8.4-10.2); Carbon Dioxide 27 mmol/L (22-30); Chloride 107 mmol/L (98-107); Estimated CRCL calculation 113 ml/min; Estimated Glomerular Filt Rate > 60; Glucose 103 mg/dL (65-110); Lipase 76 U/L (23-300); Potassium 3.9 mmol/L (3.4-5.0); Sodium 140 mmol/L (137-145)
[2023-09-04 15:26] LABS: Troponin I 0.015 ng/mL (0.000-0.034)
[2023-09-04] MEDS: ASPIRIN 81 MG CHEWABLE TABLET 324 MG PO (15:33)
[2023-09-04 15:35] LABS: Prothrombin Time 13.4 Seconds (11.1-14.7)
[2023-09-04 15:36] LABS: Partial Thromboplastin Time 30.9 SECONDS (22.3-36.8)
[2023-09-04 15:37] LABS: NT Pro B Type Natriuretic Pept 226 pg/mL (19.9-100)
--- NOTE | 2023-09-04 18:01 | ECG_ITS ---
Measurements Intervals [place] Rate: 61 P: 50 ID: 133 QRS: 29 QRSD: 114 T: 189 QT: 439 QTc: 444 Interpretive Statements SINUS RHYTHM LEFT VENTRICULAR HYPERTROPHY AND ST-T CHANGE ST-T WAVE ABNORMALITY IN DIFFUSE LEADS- CONSIDER ISCHEMIA ABNORMAL ECG COMPARED TO ECG 09/04/2023 14:48:50 NO SIGNIFICANT CHANGES Electronically Signed On 09-04-2023 19:35:39 [employer] by Willard Cheung D.O.
[2023-09-04 18:44] LABS: Troponin I 0.024 ng/mL (0.000-0.034)
== END 2023-09-04 19:23 | disposition home or self-care (01) ==
PROVIDERS: Emergency Provider Emergency Medicine; PCP Emergency Medicine
DX: R07.89 Other chest pain (principal); E78.5 Hyperlipidemia, unspecified; I10 Essential (primary) hypertension; F17.210 Nicotine dependence, cigarettes, uncomplicated
CPT/HCPCS: 36415; 71046; 80053; 83690; 83880; 84484; 85025; 85610; 85730; 93005; 99284; A9270